=== PATIENT | male | born 1970 | race Caucasian/White ===

== ENCOUNTER 2018-04-28 21:08 | Observation (INO) ==
[2018-04-28 22:29] LABS: Baso # (Auto) 0.1 th/mm3 (0.0-0.2); Baso % (Auto) 1.1 % (0.0-2.0); Eos # (Auto) 0.2 th/mm3 (0.0-0.4); Eos % (Auto) 1.6 % (0.0-4.0); Hemoglobin 15.5 gm/dL (13.0-17.0); Lymph # (Auto) 2.3 th/mm3 (1.0-4.8); Lymph % (Auto) 22.1 % (9.0-44.0); Mean Corpuscular HGB Conc 34.4 % (32.0-36.0); Mean Corpuscular Hemoglobin 30.1 pg (27.0-34.0); Mean Corpuscular Volume 87.4 fL (80.0-100.0); Mean Platelet Volume 9.8 fL (7.0-11.0); Mono # (Auto) 0.6 th/mm3 (0.0-0.9); Mono % (Auto) 6.3 % (0.0-8.0); Neut % (Auto) 68.9 % (16.0-70.0); Platelet Count 241 th/mm3 (150-450); Red Blood Count 5.15 mil/mm3 (4.50-5.90); Red Cell Distribution Width 13.4 % (11.6-17.2); White Blood Count 10.2 th/mm3 (4.0-11.0)
--- NOTE | 2018-04-28 22:44 | XR ---
EXAM DATE: 04/28/2018 10:35 PM EST AGE/SEX: 47 years / Male INDICATIONS: . Chest pain. CLINICAL DATA: This is the patient's initial encounter. Patient reports that signs and symptoms have been present for 3 weeks and indicates a pain score of 7/10. MEDICAL/SURGICAL HISTORY: None. None. COMPARISON: No prior exams available for comparison. FINDINGS: PA and lateral views of the chest demonstrate the lungs to be symmetrically aerated without evidence of mass, infiltrate or effusion. The cardiomediastinal contours are unremarkable. Osseous structures are intact. CONCLUSION: No active disease. Electronically signed by: Porfirio Fuller MD Board Certified Radiologist 04/28/2018 10:43 PM EST
[2018-04-28 22:48] LABS: Anion Gap 5 meq/L (5-15); Blood Urea Nitrogen 17 mg/dL (7-18); Calcium 8.9 mg/dL (8.5-10.1); Carbon Dioxide 27.9 meq/L (21.0-32.0); Chloride 106 meq/L (98-107); Creatine Kinase 289 U/L (39-308); Glomerular Filtration Rate 76 mL/min (>89); Glucose,Random 105 mg/dL (74-106); Sodium 139 meq/L (136-145)
[2018-04-28 22:49] LABS: Potassium 3.6 meq/L (3.5-5.1)
[2018-04-28 23:01] LABS: Creatine Kinase MB 3.1 ng/mL (0.5-3.6)
--- NOTE | 2018-04-28 23:31 | ED ---
HPI General Chief Complaint: Chest Pain Stated Complaint: Chest Pain Time Seen by Provider: 04/28/18 21:26 Source: patient Mode of arrival: ambulatory Limitations: no limitations History of Present Illness HPI narrative: 47-year-old male came to the emergency room with history of substernal chest pain that has been on and off for past 3 weeks but continues since this morning. Patient says at one point it radiated down his right arm which concerned him immensely and made him come to the emergency room. No aggravating or relieving factors identified. Patient is not a smoker. He does have history of high. He is never been worked up for coronary artery disease. No history of shortness of breath, lightheadedness or syncopal episode. No family history of coronary artery disease. Vital signs were stable. Related Data Home Medications Medication Instructions Recorded Confirmed levothyroxine 04/28/18 04/28/18 Crestor 04/29/18 04/29/18 Allergies Allergy/AdvReac Type Severity Reaction Status Date / Time No Known Allergies Allergy Verified 04/28/18 21:26 Review of Systems ROS: all other systems reviewed are negative [facility] Medical History Medical History Hypercholesteremia (Acute) Hyperthyroidism (Acute) Surgical History Surgical History H/O knee surgery (Acute) Social History Social History Substance History: Active Abuse Second Hand Smoke Exposure: Yes Smoking Status: Former smoker How Often Do You Have a Drink Containing Alcohol: 2 to 4 times a month Recent Travel in [facility] within the Last 8 Weeks: No Recent Out of Country Travel within the Last 8 Weeks: No Substance Abuse Detail Marijuana: Substance Use Status: Active Route Used Substance Abuse: Inhalation Immunization History Tetanus Immunization: <5 Years Exam Narrative Exam Narrative: GENERAL: Awake, alert, anxious, no obvious distress SKIN: Focused skin assessment warm/dry. HEAD: Atraumatic. Normocephalic. EYES: Pupils equal and round. No scleral icterus. No injection or drainage. ENT: No nasal bleeding or discharge. Mucous membranes pink and moist. NECK: Trachea midline. No JVD. CARDIOVASCULAR: Regular rate and rhythm. No murmur appreciated. RESPIRATORY: No accessory muscle use. Clear to auscultation. Breath sounds equal bilaterally. GASTROINTESTINAL: Abdomen soft, non-tender, nondistended. Hepatic and splenic margins not palpable. MUSCULOSKELETAL: No obvious deformities. No clubbing. No cyanosis. No edema. NEUROLOGICAL: Awake and alert. No obvious cranial nerve deficits. Motor grossly within normal limits. Normal speech. PSYCHIATRIC: Appropriate mood and affect; insight and judgment normal. Course Initial Documented Vital Signs Temperature 97.2 F L 04/28/18 21:12 Pulse Rate 67 04/28/18 21:12 Respiratory Rate 20 04/28/18 21:12 Blood Pressure 136/71 04/28/18 21:12 Pulse Oximetry 98 04/28/18 21:12 Last Documented Vital Signs Temperature 98.5 F 04/29/18 07:44 Pulse Rate 62 04/29/18 07:44 Respiratory Rate 18 04/29/18 07:44 Blood Pressure 117/64 04/29/18 07:44 Pulse Oximetry 97 04/29/18 07:44 Medical Decision Making [facility] Narrative Medical decision making narrative: 11:29 PM blood test results are back and within acceptable limits. Patient will be admitted to the chest pain center to be ruled out. Medical Screen Exam Complete: Yes Emergency Medical Condition: Yes Lab Data Result diagrams: 04/28/18 22:22 04/29/18 04:10 Lab Results 04/28/18 04/28/18 04/29/18 Range/Units 22:22 22:22 01:46 WBC 10.2 (4.0-11.0) th/mm3 RBC 5.15 (4.50-5.90) mil/mm3 Hgb 15.5 (13.0-17.0) gm/dL Hct 45.0 (39.0-51.0) % MCV 87.4 (80.0-100.0) fL MCH 30.1 (27.0-34.0) pg MCHC 34.4 (32.0-36.0) % RDW 13.4 (11.6-17.2) % Plt Count 241 (150-450) th/mm3 MPV 9.8 (7.0-11.0) fL Neut % (Auto) 68.9 (16.0-70.0) % Lymph % (Auto) 22.1 (9.0-44.0) % [place] % (Auto) 6.3 (0.0-8.0) % Eos % (Auto) 1.6 (0.0-4.0) % Baso % (Auto) 1.1 (0.0-2.0) % Neut # (Auto) 7.0 (1.8-7.7) th/mm3 Lymph # (Auto) 2.3 (1.0-4.8) th/mm3 [place] # (Auto) 0.6 (0.0-0.9) th/mm3 Eos # (Auto) 0.2 (0.0-0.4) th/mm3 Baso # (Auto) 0.1 (0.0-0.2) th/mm3 WBC Differential . Differential Comment Auto diff final Sodium 139 (136-145) meq/L Potassium 3.6 (3.5-5.1) meq/L Chloride 106 (98-107) meq/L Carbon Dioxide 27.9 (21.0-32.0) meq/L Anion Gap 5 (5-15) meq/L BUN 17 (7-18) mg/dL Creatinine 1.05 (0.60-1.30) mg/dL Estimated GFR 76 L (>89) mL/min Random Glucose 105 (74-106) mg/dL Calcium 8.9 (8.5-10.1) mg/dL Total Bilirubin (0.2-1.0) mg/dL AST (15-37) U/L ALT (12-78) U/L Alkaline Phosphatase (45-117) U/L Total Creatine Kinase 289 236 (39-308) U/L CK-MB (CK-2) 3.1 (0.5-3.6) ng/mL Troponin I Less than 0.02 L Less than 0.02 L (0.02-0.05) ng/mL Total Protein (6.4-8.2) g/dL Albumin (3.4-5.0) g/dL 04/29/18 Range/Units 04:10 WBC (4.0-11.0) th/mm3 RBC (4.50-5.90) mil/mm3 Hgb (13.0-17.0) gm/dL Hct (39.0-51.0) % MCV (80.0-100.0) fL MCH (27.0-34.0) pg MCHC (32.0-36.0) % RDW (11.6-17.2) % Plt Count (150-450) th/mm3 MPV (7.0-11.0) fL Neut % (Auto) (16.0-70.0) % Lymph % (Auto) (9.0-44.0) % [place] % (Auto) (0.0-8.0) % Eos % (Auto) (0.0-4.0) % Baso % (Auto) (0.0-2.0) % Neut # (Auto) (1.8-7.7) th/mm3 Lymph # (Auto) (1.0-4.8) th/mm3 [place] # (Auto) (0.0-0.9) th/mm3 Eos # (Auto) (0.0-0.4) th/mm3 Baso # (Auto) (0.0-0.2) th/mm3 WBC Differential Differential Comment Sodium 143 (136-145) meq/L Potassium 3.7 (3.5-5.1) meq/L Chloride 110 H (98-107) meq/L Carbon Dioxide 26.8 (21.0-32.0) meq/L Anion Gap 6 (5-15) meq/L BUN 13 (7-18) mg/dL Creatinine 0.95 (0.60-1.30) mg/dL Estimated GFR 85 L (>89) mL/min Random Glucose 96 (74-106) mg/dL Calcium 8.4 L (8.5-10.1) mg/dL Total Bilirubin 0.6 (0.2-1.0) mg/dL AST 21 (15-37) U/L ALT 32 (12-78) U/L Alkaline Phosphatase 88 (45-117) U/L Total Creatine Kinase 234 (39-308) U/L CK-MB (CK-2) (0.5-3.6) ng/mL Troponin I Less than 0.02 L (0.02-0.05) ng/mL Total Protein 6.6 (6.4-8.2) g/dL Albumin 3.6 (3.4-5.0) g/dL Imaging Data Radiologist's impression: Chest X-Ray 02/17/19 22:18 CONCLUSION: No active disease. Myocardial Perfusion Scan Nuc Med 04/29/18 08:04 CONCLUSION: 1. Negative for stress-induced ischemia. 2. Patient achieved adequate treadmill stress target heart rate 147, maximum heart rate of 171 ECG Data Attestation: I personally reviewed and interpreted this ECG as follows: Interpretation: Twelve-lead EKG was reviewed by me. Normal sinus rhythm, left axis deviation, nonspecific ST-T wave changes. Heart rate of 69 bpm. Discharge Plan Discharge Disposition Patient Disposition: ED Admit(ED Internal Use Only) Discharge Condition Condition: Stable Discharge Order Discharge Orders: Discharge Order (Routine); Ordered 04/29/18 Ordered By: Shai Zendejas ED Use Only Admit Order (Routine); Ordered 04/28/18 Ordered By: Taina Reynolds Physicians Team ED Provider: Taina Reynolds Primary Care Provider: Bubba Fenton Attending Provider: Edmar Garrido Status ED Status: Left Department Discharge Information Discharge Date/Time: 04/29/18 00:37
[2018-04-29 02:27] LABS: Creatine Kinase 236 U/L (39-308)
[2018-04-29 04:56] LABS: Albumin 3.6 g/dL (3.4-5.0); Anion Gap 6 meq/L (5-15); Aspartate Aminotransferase 21 U/L (15-37); Blood Urea Nitrogen 13 mg/dL (7-18); Calcium 8.4 mg/dL (8.5-10.1); Carbon Dioxide 26.8 meq/L (21.0-32.0); Chloride 110 meq/L (98-107); Glomerular Filtration Rate 85 mL/min (>89); Glucose,Random 96 mg/dL (74-106); Potassium 3.7 meq/L (3.5-5.1); Sodium 143 meq/L (136-145)
[2018-04-29 04:57] LABS: Alanine Aminotransferase 32 U/L (12-78)
[2018-04-29 05:00] LABS: Alkaline Phosphatase 88 U/L (45-117); Creatine Kinase 234 U/L (39-308); Total Protein 6.6 g/dL (6.4-8.2)
[2018-04-29 05:58] VITALS: O2SAT 97
[2018-04-29 07:45] VITALS: BP 117/64; PULSE 62; RESP 18; TEMP 98.5
--- NOTE | 2018-04-29 08:09 | P.HPCA ---
History of Present Illness Primary Care Physician: Bubba Fenton MD Chief Complaint: Chest pain History of Present Illness: This is a 47-year-old male with history of hyperlipidemia and hypothyroidism that presents to ED to evaluate for chest discomforts. States that for the first 2 weeks of his discomfort they were intermittent lasting anywhere from 30 seconds to 1 minute. States the discomfort was primarily in the center of his chest but at times the discomfort also bounce around in other areas of his chest. At times would radiate down his right arm and he would notice that his right arm will be sweating. Denies any found to bring on the discomfort at times when he would smoke marijuana. States he is very active. 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 He states is always been basically when he has been resting. He found that drinking a bunch of water may help. His symptoms yesterday concerned him prompting him to come to the emergency department. He states the discomfort was no longer intermittent, states the pain lasted all day and is even still present at this time but not as intense. Again he noticed that yesterday the discomfort would improve with drinking a bunch of water. Cannot recall ever having a cardiac workup. Denies shortness of breath and nausea. Denies recent illnesses. Past medical history: Hyperlipidemia and hypothyroidism. Denies hypertension, diabetes, and known CAD. Family history: Denies family history of CAD. Social history: Patient quit smoking cigarettes 7 years ago but prior to that he smoked 1 pack of cigarettes daily for 20 years. Smokes marijuana daily. Denies alcohol use. He works as an industrial electrician journeyman. Surgical history: Left ACL repair. - Diagnosis (1) Chest pain (2) Hyperlipidemia Review of Systems General: Patient denies fevers, chills, and recent travel. HEENT: Patient denies headache, sore throat, difficulty swallowing. Cardiovascular: Has the chest discomfort as mentioned above. Denies sensation of heart beating rapidly or irregularly. No syncope. Mild diaphoresis and also noticed that his right arm would sweat with the discomfort. Respiratory: Denies shortness of breath or inspirational chest discomfort. Denies coughing wheezing or hemoptysis. GI: Patient denies nausea, vomiting, diarrhea, abdominal pain, bloody stools. Musculoskeletal: Patient denies joint pain or edema. Denies calf pain or edema. Neurovascular: Patient denies numbness, tingling, weakness in extremities. Denies headache. Endocrine: Denies polyuria and polydipsia. Hematologic: Denies easy bruising. Skin: Denies rash or itching. PMFSH - History History Provided By: Patient - Medical History Medical History: Medical History (Last Reviewed 04/28/18 @ 23:29 by Taina Reynolds MD) Hypercholesteremia Hyperthyroidism - Surgical History Surgical History: Surgical History (Last Reviewed 04/28/18 @ 23:29 by Taina Reynolds MD) H/O knee surgery - Tobacco History Second Hand Smoke Exposure: Yes Tobacco Use In Past 30 Days: No Smoking Status: Former smoker - Alcohol History How Often Do You Have a Drink Containing Alcohol: 2 to 4 times a month - Substance Use History Substance History: Active Abuse - Substance Use Type Marijuana Status: Active Route Used: Inhalation Reason for Use: Calm Down, Feels Good - Travel History Recent Travel in the [place] Within the Last 8 Weeks: No Recent Travel Out of the Country Within the Last 8 Weeks: No - Immunization History Tetanus Immunization: <5 Years Medications and Allergies Active Medications: Active Medications Sodium Chloride (Ns Flush) 2 ml IV.FLUSH UNSCH PRN PRN Reason: FLUSH AFTER USING IV ACCESS Allergies Allergy/AdvReac Type Severity Reaction Status Date / Time No Known Allergies Allergy Verified 04/28/18 21:26 Home Medications Medication Instructions Recorded Confirmed Type levothyroxine 04/28/18 04/28/18 History Crestor 04/29/18 04/29/18 History Exam Vital signs: Vital Signs 04/28/18 21:12 04/28/18 21:29 04/28/18 22:20 Temperature 97.2 F L Pulse Rate 67 73 Respiratory Rate 20 18 Blood Pressure 136/71 148/86 H Pulse Oximetry 98 96 96 04/28/18 23:30 04/29/18 00:50 04/29/18 04:00 Temperature 97.8 F 98.3 F Pulse Rate 73 60 66 Respiratory Rate 12 12 Blood Pressure 139/78 124/76 Pulse Oximetry 98 97 04/29/18 07:16 04/29/18 07:44 Temperature 98.5 F Pulse Rate 70 62 Respiratory Rate 18 Blood Pressure 117/64 Pulse Oximetry 97 Intake & Output 04/28/18 04/29/18 04/29/18 18:59 06:59 18:59 Weight 79.4 kg Other: Date of Last Bowel Movement 04/28/18 Weight On Admission 79.379 kg Narrative: GENERAL: This is a well-nourished, well-developed patient, in no apparent distress. Patient speaks in clear complete sentences. Patient is pleasant. HEENT: Head is atraumatic and normocephalic. Neck is supple without lymphadenopathy and trachea is midline. No JVD or carotid bruits. CARDIOVASCULAR: Regular rate and rhythm without murmurs, gallops, or rubs. RESPIRATORY: Clear to auscultation. Breath sounds equal bilaterally. No wheezes , rales, or rhonchi. Chest wall is nontender. No use of accessory muscles. GASTROINTESTINAL: Abdomen is nontender, nondistended. Abdomen soft. No obvious pulsatile mass or bruit. No CVA tenderness. Strong femoral pulses bilaterally. Normal bowel sounds in all quadrants. MUSCULOSKELETAL: Patient is moving upper and lower extremities freely. No calf tenderness or edema, no Homans sign. Strong pulses in upper and lower extremities. NEUROLOGICAL: Patient is alert and oriented. Cranial nerves 2-12 are grossly intact. No focal deficits and speech is clear. SKIN: No rash and turgor is normal. Results 04/28/18 22:22 04/29/18 04:10 Cardiac Enzymes 04/28/18 04/29/18 04/29/18 Range/Units 22:22 01:46 04:10 AST 21 (15-37) U/L CK-MB (CK-2) 3.1 (0.5-3.6) ng/mL Troponin I Less than 0.02 L Less than 0.02 L Less than 0.02 L (0.02-0.05) ng/mL CBC 04/28/18 Range/Units 22:22 WBC 10.2 (4.0-11.0) th/mm3 RBC 5.15 (4.50-5.90) mil/mm3 Hgb 15.5 (13.0-17.0) gm/dL Hct 45.0 (39.0-51.0) % Plt Count 241 (150-450) th/mm3 Neut # (Auto) 7.0 (1.8-7.7) th/mm3 Lymph # (Auto) 2.3 (1.0-4.8) th/mm3 Kimble # (Auto) 0.6 (0.0-0.9) th/mm3 Eos # (Auto) 0.2 (0.0-0.4) th/mm3 Baso # (Auto) 0.1 (0.0-0.2) th/mm3 Comprehensive Metabolic Panel 04/28/18 04/29/18 Range/Units 22:22 04:10 Sodium 139 143 (136-145) meq/L Potassium 3.6 3.7 (3.5-5.1) meq/L Chloride 106 110 H (98-107) meq/L Carbon Dioxide 27.9 26.8 (21.0-32.0) meq/L BUN 17 13 (7-18) mg/dL Creatinine 1.05 0.95 (0.60-1.30) mg/dL Calcium 8.9 8.4 L (8.5-10.1) mg/dL AST 21 (15-37) U/L ALT 32 (12-78) U/L Alkaline Phosphatase 88 (45-117) U/L Total Protein 6.6 (6.4-8.2) g/dL Albumin 3.6 (3.4-5.0) g/dL Intake and Output 04/28/18 04/29/18 04/29/18 22:59 06:59 14:59 Other: Date of Last Bowel Movement 04/28/18 Weight 79.379 kg 79.4 kg Weight On Admission 79.379 kg - Imaging and Cardiology Imaging: Impressions Chest X-Ray 04/28/18 22:18 CONCLUSION: No active disease. EKG interpretations - EKG EKG shows: sinus rhythm (EKGs are sinus rhythm with nonspecific inferior and lateral T wave changes.) Caprini VTE Risk Assessment Caprini VTE Risk Assessment: No/Low Risk (score <= 1) Caprini Risk Assessment Model: Point Value = 1 Point Value = 2 Point Value = 3 Point Value = 5 Age 41-60 Minor surgery BMI > 25 kg/m2 Swollen legs Varicose veins or History of unexplained or recurrent spontaneous Oral contraceptives or hormone replacement Sepsis (< 1 month) Serious lung disease, including pneumonia (< 1 month) Abnormal pulmonary function Acute myocardial infarction Congestive heart failure (< 1 month) History of inflammatory bowel disease Medical patient at bed rest Age 61-74 Arthroscopic surgery Major open surgery (> 45 min) Laparoscopic surgery (> 45 min) Malignancy Confined to bed (> 72 hours) Immobilizing plaster cast Central venous access Age >= 75 History of VTE Family history of VTE Factor V Leiden Prothrombin 19612L Lupus anticoagulant Anticardiolipin antibodies Elevated serum homocysteine Heparin-induced thrombocytopenia Other congenital or acquired thrombophilia Stroke (< 1 month) Elective arthroplasty Hip, pelvis, or leg fracture Acute spinal cord injury (< 1 month) Prophylaxis Regimen: Total Risk Factor Score Risk Level Prophylaxis Regimen 0-1 Low Early ambulation 2 Moderate Order ONE of the following: *Sequential Compression Device (SCD) *Heparin 5000 units SQ BID 3-4 Higher Order ONE of the following medications: *Heparin 5000 units SQ TID *Enoxaparin/Lovenox 40 mg SQ daily (WT < 150 kg, CrCl > 30 mL/min) *Enoxaparin/Lovenox 30 mg SQ daily (WT < 150 kg, CrCl > 10-29 mL/min) *Enoxaparin/Lovenox 30 mg SQ BID (WT < 150 kg, CrCl > 30 mL/min) AND/OR *Sequential Compression Device (SCD) 5 or more Highest Order ONE of the following medications: *Heparin 5000 units SQ TID (Preferred with Epidurals) *Enoxaparin/Lovenox 40 mg SQ daily (WT < 150 kg, CrCl > 30 mL/min) *Enoxaparin/Lovenox 30 mg SQ daily (WT < 150 kg, CrCl > 10-29 mL/min) *Enoxaparin/Lovenox 30 mg SQ BID (WT < 150 kg, CrCl > 30 mL/min) AND *Sequential Compression Device (SCD) Assessment and Plan - Assessment (1) Chest pain Code(s): R07.9 - Chest pain, unspecified Status: Acute (2) Hyperlipidemia Code(s): E78.5 - Hyperlipidemia, unspecified Status: Acute - Plan * Chest pain: Patient will continue to have serial cardiac enzymes and EKGs for ruling out purposes and will be seen by Dr. Garrido of cardiology in the chest pain center. He will undergo a nuclear ETT and if nonischemic will likely be discharged home with instructions to follow-up with his primary care physician Dr. Fenton. Return to ED for interval issues. * Hyperlipidemia: Continue Crestor. Patient is stable at this time. He is agreeable to this plan. H&P: Quality - VTE Deep Vein Thrombosis/Pulmonary Embolism Present on Admission: No
[2018-04-29] MEDS ORDERED: Aspirin 325 MG Tablet PO SCH (09:00)
--- NOTE | 2018-04-29 10:06 | P.PNCA ---
Subjective Interval history: Patient was presented by the physician cardiologist and then seen and examined personally. Documentation as entered both by the emergency room and by the physician cardiologist is appropriate. further documentation not felt necessary at this time. I would however emphasize that the patient does recognize that his discomfort has a high relationship to his pot use. Also point out that he has a history of anxiety attacks. Medications and Allergies Active Medications: Active Medications Aspirin (Aspirin) 325 mg PO DAILY MITESH Sodium Chloride (Ns Flush) 2 ml IV.FLUSH UNSCH PRN PRN Reason: FLUSH AFTER USING IV ACCESS Allergies Allergy/AdvReac Type Severity Reaction Status Date / Time No Known Allergies Allergy Verified 04/28/18 21:26 Home Medications Medication Instructions Recorded Confirmed Type levothyroxine 04/28/18 04/28/18 History Crestor 04/29/18 04/29/18 History Physical Exam Vital signs: Vital Signs 04/28/18 21:12 04/28/18 21:29 04/28/18 22:20 Temperature 97.2 F L Pulse Rate 67 73 Respiratory Rate 20 18 Blood Pressure 136/71 148/86 H Pulse Oximetry 98 96 96 04/28/18 23:30 04/29/18 00:50 04/29/18 04:00 Temperature 97.8 F 98.3 F Pulse Rate 73 60 66 Respiratory Rate 12 12 Blood Pressure 139/78 124/76 Pulse Oximetry 98 97 04/29/18 07:16 04/29/18 07:44 Temperature 98.5 F Pulse Rate 70 62 Respiratory Rate 18 Blood Pressure 117/64 Pulse Oximetry 97 Intake & Output 04/28/18 04/29/18 04/29/18 18:59 06:59 18:59 Weight 79.4 kg Other: Date of Last Bowel Movement 04/28/18 04/28/18 Weight On Admission 79.379 kg Narrative: Well-nourished well-developed but anxious young man sitting on bedside Skin warm dry normal texture turgor Head normocephalic atraumatic eyes PERRLA EOMI sclera clear no conjunctival injection Neck supple no JVD masses nodes or bruits Chest nontender auscultation is clear with no rales wheezes or rhonchi Cardiovascular PMI is not displaced there is a regular rhythm with no gallop rub or murmur Abdomen soft nontender no guarding or rebound no hepatosplenomegaly Extremities no clubbing cyanosis or edema Psychiatric patient is anxious and somewhat apprehensive otherwise mood and judgment seems normal. Results 04/28/18 22:22 04/29/18 04:10 Cardiac Enzymes 04/28/18 04/29/18 04/29/18 Range/Units 22:22 01:46 04:10 AST 21 (15-37) U/L CK-MB (CK-2) 3.1 (0.5-3.6) ng/mL Troponin I Less than 0.02 L Less than 0.02 L Less than 0.02 L (0.02-0.05) ng/mL CBC 04/28/18 Range/Units 22:22 WBC 10.2 (4.0-11.0) th/mm3 RBC 5.15 (4.50-5.90) mil/mm3 Hgb 15.5 (13.0-17.0) gm/dL Hct 45.0 (39.0-51.0) % Plt Count 241 (150-450) th/mm3 Neut # (Auto) 7.0 (1.8-7.7) th/mm3 Lymph # (Auto) 2.3 (1.0-4.8) th/mm3 [place] # (Auto) 0.6 (0.0-0.9) th/mm3 Eos # (Auto) 0.2 (0.0-0.4) th/mm3 Baso # (Auto) 0.1 (0.0-0.2) th/mm3 Comprehensive Metabolic Panel 04/28/18 04/29/18 Range/Units 22:22 04:10 Sodium 139 143 (136-145) meq/L Potassium 3.6 3.7 (3.5-5.1) meq/L Chloride 106 110 H (98-107) meq/L Carbon Dioxide 27.9 26.8 (21.0-32.0) meq/L BUN 17 13 (7-18) mg/dL Creatinine 1.05 0.95 (0.60-1.30) mg/dL Calcium 8.9 8.4 L (8.5-10.1) mg/dL AST 21 (15-37) U/L ALT 32 (12-78) U/L Alkaline Phosphatase 88 (45-117) U/L Total Protein 6.6 (6.4-8.2) g/dL Albumin 3.6 (3.4-5.0) g/dL Intake and Output 04/28/18 04/29/18 04/29/18 22:59 06:59 14:59 Other: Date of Last Bowel Movement 04/28/18 04/28/18 Weight 79.379 kg 79.4 kg Weight On Admission 79.379 kg - Imaging and Cardiology Imaging: Impressions Chest X-Ray 04/28/18 22:18 CONCLUSION: No active disease. Assessment and Plan - Assessment (1) Chest pain Code(s): R07.9 - Chest pain, unspecified Status: Acute Plan: Patient is negative EKG other than mild nonspecific ST-T wave changes and negative enzymes. He will be further evaluated with a nuclear stress test. If this is negative he will be discharged further follow-up on outpatient basis if positive he will be considered for further inpatient evaluation. (2) Hyperlipidemia Code(s): E78.5 - Hyperlipidemia, unspecified Status: Acute - Plan * Chest pain: Patient will continue to have serial cardiac enzymes and EKGs for ruling out purposes and will be seen by Dr. Garrido of cardiology in the chest pain center. He will undergo a nuclear ETT and if nonischemic will likely be discharged home with instructions to follow-up with his primary care physician Dr. Fenton. Return to ED for interval issues. * Hyperlipidemia: Continue Crestor. Patient is stable at this time. He is agreeable to this plan.
--- NOTE | 2018-04-29 11:02 | NM ---
EXAM DATE: 04/29/2018 10:58 AM EST AGE/SEX: 47 years / Male INDICATIONS: Angina. . Substernal chest pain. CLINICAL DATA: This is the patient's initial encounter. Patient reports that signs and symptoms have been present for 1 day and indicates a pain score of 6/10. MEDICAL/SURGICAL HISTORY: Hyperthyroidism. . Knee surgery. COMPARISON: No prior exams available for comparison. DOSE: 8.7 mCi Tc 99m Myoview at rest 26.5 mCi [id number] at stress REST HEART RATE: 74 BPM TARGET HEART RATE: 147 BPM MAX HEART RATE: 171 BPM REST BLOOD PRESSURE: 120/68 mmHg MAX BLOOD PRESSURE: 164/86 mmHg EJECTION FRACTION: 54 % TECHNIQUE: The patient underwent upright treadmill exercise in the chest pain center. Continuous EC G tracing was monitored during stress. Gated SPECT imaging was performed after stress, and conventio nal SPECT imaging was performed at rest. The examination was performed on a SPECT/CT scanner, both a ttenuation-corrected and non-corrected datasets were reviewed. FINDINGS: The best perfused myocardium is the anterior lateral wall. Moderate gut activity does obscure the inf erior wall on the resting images. There are no fixed defects to suggest infarction. There is no redistribution suggest ischemia. Ejection fraction is cannulated at 54%, mildly decreased with mild inferior septal hypokinesis. . RISK CATEGORY: Low CONCLUSION: 1. Negative for stress-induced ischemia. 2. Patient achieved adequate treadmill stress target heart rate 147, maximum heart rate of 171 Electronically signed by: Elmer Ramirez MD Board Certified Radiologist 04/29/2018 11:01 AM EST
--- NOTE | 2018-04-29 15:30 | ECG ---
Date Performed: 04/29/2018 Time Performed: 01:59:23 PTAGE: 47 years EKG: Sinus rhythm BORDERLINE LEFT AXIS DEVIATION BORDERLINE ECG No significant change PREVIOUS TRACING : 04/28/2018 21.26 DOCTOR: Edmar Garrido Interpretating Date/Time 04/29/2018 15:28:02
--- NOTE | 2018-04-29 15:30 | ECG ---
Date Performed: 04/29/2018 Time Performed: 04:15:05 PTAGE: 47 years EKG: Sinus rhythm MARKED LEFT AXIS DEVIATION NONSPECIFIC T-WAVE ABNORMALITY ABNORMAL ECG No significant change PREVIOUS TRACING : 04/29/2018 01.59 DOCTOR: Edmar Garrido Interpretating Date/Time 04/29/2018 15:27:41
--- NOTE | 2018-04-29 15:31 | ECG ---
Date Performed: 04/29/2018 Time Performed: 01:37:31 PTAGE: 47 years EKG: ATRIAL FIBRILLATION MARKED LEFT AXIS DEVIATION POSSIBLE RIGHT VENTRICULAR CONDUCTION DELAY ABNORMAL ECG No significant change NO PREVIOUS TRACING DOCTOR: Edmar Garrido Interpretating Date/Time 04/29/2018 15:30:10
--- NOTE | 2018-04-29 15:32 | ECG ---
Date Performed: 04/28/2018 Time Performed: 21:26:46 PTAGE: 47 years EKG: Sinus rhythm MARKED LEFT AXIS DEVIATION PATTERN CONSISTENT WITH PULMONARY DISEASE NONSPECIFIC T-WAVE ABNORMALITY ABNORMAL ECG NO PREVIOUS TRACING DOCTOR: Edmar Garrido Interpretating Date/Time 04/29/2018 15:30:32
--- NOTE | 2018-04-29 15:35 | TR ---
Date Performed: 04/29/2018 Time Performed: 09:50:38 DOCTOR: Edmar Garrido DRUG LIST: CLINICAL HISTORY: REASON FOR TEST: Chest pain, rule out ACS REASON FOR ENDING: OBSERVATION: CONCLUSION: ANTONIETTA PROTOCOL NUCLEAR ETT. PATIENT'S CONSTANT CP IMPROVED DURING STRESS. MILD SOB. Maximum NW=705 % Max HR Achieved=99.0% Maximum EP=389/80 Total Exercise Time=10:19 COMMENTS: Negative stress test with a low probability of clinically significant ischemic heart d isease as a cause of current presentation
== END 2018-04-29 11:47 | disposition home or self-care (01) ==
LOC: NEDA 21:08 → NEPD 21:08 → NEPFCDU 04-29 00:37
PROVIDERS: ADMIT Internal Medicine Interventional Cardiology; ATTEND Internal Medicine Interventional Cardiology
DX: Z79.899 Other long term (current) drug therapy; F41.1 Generalized anxiety disorder; R07.89 Other chest pain; F12.90 Cannabis use, unspecified, uncomplicated; E78.5 Hyperlipidemia, unspecified; Z87.891 Personal history of nicotine dependence; E03.9 Hypothyroidism, unspecified
CPT/HCPCS: 71020; 71046; 78452; 80048; 80053; 82550; 82552; 84484; 85025; 93005; 93017; 99285; A9502; G0378